=== PATIENT | female | born 1955 | race Caucasian/White ===

== ENCOUNTER → 2020-02-24 11:02 | Outpatient (CLI) | payer BC, SELFPAY ==
--- NOTE | ~2020-02-24 | MM_ITS ---
EXAMINATION: MM screening monik BI w vernon HISTORY: Screening mammogram TECHNIQUE: Craniocaudal and mediolateral oblique 3-D tomosynthesis images were obtained and synthetic 2-D images were generated. CAD analysis was submitted and interpreted. COMPARISON: Comparison to multiple prior studies sequentially, with oldest reviewed study dated 03/24. BREAST PARENCHYMAL COMPOSITION: The breasts are heterogenously dense, which may obscure small masses FINDINGS: There is a focal asymmetry laterally in the left breast on CC view, middle third. The right breast is stable without evidence for malignancy. IMPRESSION: 1. New focal left breast asymmetry. 2. Additional mammographic views and possible breast ultrasound are recommended. BI-RADS Category 0: Incomplete: Needs additional imaging evaluation. Reviewed, dictated and finalized at location A. IMPRESSION: 1. New focal left breast asymmetry. 2. Additional mammographic views and possible breast ultrasound are recommended . BI-RADS Category 0: Incomplete: Needs additional imaging evaluation.
== END ==
PROVIDERS: PCP Family Medicine; Visit Provider Obstetrics & Gynecology Gynecology
DX: Z12.31 Encounter for screening mammogram for malignant neoplasm of breast (principal); R92.8 Other abnormal and inconclusive findings on diagnostic imaging of breast
CPT/HCPCS: 77063; 77067

== ENCOUNTER 2020-03-01 11:34 | Outpatient (CLI) | payer BC, SELFPAY ==
--- NOTE | ~2020-03-01 | MM_ITS ---
EXAMINATION: MM diagnostic mammo unilat LT HISTORY: New focal mammographic asymmetry of left breast was reported on 02/24/2020 bilateral digital screening mammogram TECHNIQUE: Additional 3-D tomosynthesis images of the left breast were performed and synthetic 2-D im ages were generated. Rolled medial and rolled lateral craniocaudal views of left breast. CAD analysis was submitted and interpreted. COMPARISON: 02/24/2020 bilateral digital screening mammogram 05/04/2018 bilateral digital screening mammogram FINDINGS: No suspicious mass or architectural distortion, malignant calcification, skin thickening or retraction is detected. No significant new or developing density is evident. IMPRESSION: 1. No mammographic evidence of malignancy 2. Routine annual mammographic screening is recommended. BI-RADS Category 1: Negative Reviewed, dictated and finalized at location A.
== END 2020-03-01 11:35 | disposition home or self-care (01) ==
LOC: ANHIMG 11:36
PROVIDERS: PCP Family Medicine; Visit Provider Obstetrics & Gynecology Gynecology
DX: R92.8 Other abnormal and inconclusive findings on diagnostic imaging of breast (principal)
CPT/HCPCS: 77065

== ENCOUNTER 2021-09-10 08:48 | Outpatient (CLI) | payer BC, SELFPAY ==
--- NOTE | ~2021-09-10 | MM_ITS ---
EXAMINATION: MM screening monik BI w vernon HISTORY: Screening TECHNIQUE: Craniocaudal and mediolateral oblique 3-D tomosynthesis images were obtained and synthetic 2-D images were generated. CAD analysis was submitted and interpreted. COMPARISON: No prior mammogram is available for comparison at this institution. BREAST PARENCHYMAL COMPOSITION: The breasts are heterogeneously dense, which may obscure small masses . FINDINGS: There is no evidence of suspicious mass, calcification, or architectural distortion to sugg est malignancy in either breast. There has been no suspicious interval change. IMPRESSION: 1. No mammographic evidence of malignancy. 2. Recommend routine screening mammography in one year. BI-RADS Category 1: Negative Reviewed, dictated and finalized at location A.
--- NOTE | ~2021-09-10 | DEXA_ITS ---
Bone Density Report Name: Tavia Minaya Age: 66 Sex: Female Ethnicity: White Date of : 1955 Indication: postmenopausal; hysterectomy; Referring Provider: GENO, HUMA Study: Bone densitometry was performed. Exam Date: September 10, 2021 Accession number: [id number] Bone Density: Region BMD T-score Z-score Classification AP Spine (L1-L4) 1.285 2.2 4.0 Normal Femoral Neck (Left) 0.753 -0.9 0.7 Normal Total Hip (Left) 0.891 -0.4 0.9 Normal Total Hip Bilateral Avg 0.857 -0.7 0.6 Normal Femoral Neck (Right) 0.714 -1.2 0.4 Osteopenia Total Hip (Right) 0.823 -1.0 0.3 Normal World Health Organization criteria for BMD impression classify patients as: Normal (T-score at or above -1.0), Osteopenia (T-score between -1.0 and -2.5), or Osteoporosis (T-score at or below -2.5). 10-year Fracture Risk(1): Major Osteoporotic Fracture 8.6% Hip Fracture 0.8% Reported Risk Factors: [place] (), Neck BMD=0.714, BMI=27.5 (1) FRAX(R) Version 3.08. Fracture probability calculated for an untreated patient. Fracture probability may be lower if the patient has received treatment. Clinical Information Provided by Patient: Has used the following medications: Vitamin D, Calcium Has the following medical conditions: Hysterectomy Patient maximum height was 65 Menopause Age: 30 Drinks caffeinated beverages Onset of menses at age 13 Number of children 1 Impression: The patient has low bone mass, based on the Right Femoral Neck T-score. The patient has an estimated ten-year risk of hip fracture of 0.8% and an estimated ten-year risk of major fracture of 8.6%, based on the WHO FRAX algorithm. Discussion: BONE DENSITY IS LOW AT ONE OR MORE SKELETAL SITES. This patient's lowest T-score is low at one or more skeletal sites. It meets the World Health Organization's (WHO) criteria for ?low bone mass? (T-score between -1.0 and -2.5). The patient's 10-year risk of fracture as calculated by FRAX is less than the threshold where pharmacological therapy is recommended by the National Osteoporosis Foundation (NOF). However, all treatment decisions require clinical judgment and consideration of individual patient factors, including patient preferences, comorbidities, previous drug use, risk factors not captured in the FRAX model (e.g., frailty, falls, vitamin D deficiency, increased bone turnover, interval significant decline in bone density) and possible under or overestimation of fracture risk by FRAX. The patient should follow a healthful lifestyle (good nutrition with adequate calcium and vitamin D, and appropriate weight-bearing exercise). Follow-Up: Consider repeating this study in 2 to 3 years to reassess this patient's status, or sooner if there is some new clinical indication. Reported by: GENESIS on 09/10/2021 9:18:0
== END 2021-09-10 08:49 | disposition home or self-care (01) ==
LOC: ANHIMG 08:52
PROVIDERS: PCP Physician Assistant; Visit Provider Physician Assistant
DX: Z12.31 Encounter for screening mammogram for malignant neoplasm of breast (principal); Z78.0 Asymptomatic menopausal state; M85.851 Other specified disorders of bone density and structure, right thigh
CPT/HCPCS: 77063; 77067; 77080

== ENCOUNTER 2022-04-26 07:40 | Outpatient (CLI) | payer BC, SELFPAY ==
--- NOTE | ~2022-04-26 | US_ITS ---
US abdomen complete DATE: 04/26/2022 08:12 INDICATION: Ultrasound-guided reflux, bloating, diarrhea. TECHNIQUE: Real-time imaging of the abdomen COMPARISON: 12/12/2013 gallbladder ultrasound FINDINGS: There is hepatic steatosis. No hepatic space-occupying mass lesion is evident. Normal hepat opedal portal venous flow direction. No gallstones or gallbladder wall thickening or abnormal pericholecystic fluid collection. Negative s onographic Rajput's sign. The common bile duct measures 5 mm, normal. No pancreatic mass lesion is evident. No renal mass lesion or hydronephrosis. Normal splenic size. Abdominal aorta and inferior vena cava are not optimally evaluated due to overlying bowel gas. IMPRESSION: Hepatic steatosis Reviewed, dictated and finalized at Location A. Reviewed, dictated and finalized at location A. IMPRESSION: Hepatic steatosis
== END 2022-04-26 07:41 ==
PROVIDERS: PCP Physician Assistant; Visit Provider Physician Assistant
DX: K21.9 Gastro-esophageal reflux disease without esophagitis (principal); R14.0 Abdominal distension (gaseous); R19.7 Diarrhea, unspecified; K76.0 Fatty (change of) liver, not elsewhere classified
CPT/HCPCS: 76700

== ENCOUNTER 2022-07-10 00:44 | Day surgery (SDC) | payer BC, SELFPAY ==
[2022-06-27 13:18] VITALS: BMI 27.5
[2022-07-10 06:39] VITALS: BMI 29.1
[2022-07-10 06:41] VITALS: BP 141/66; PULSE 65; RESP 18; TEMP 36.4; O2SAT 98
[2022-07-10] MEDS: LACTATED RINGERS 1,000 ML 150 ML IV CONT (06:51)
[2022-07-10 06:52] LABS: Glucose Point of Care 164 mg/dl (65-105)
--- NOTE | 2022-07-10 07:12 | P.PNAN_ITS ---
Anes - Initial Pre Proc Eval Procedure: Operation Date: 07/10/22 07:30 Proposed Procedures p Esophagogastroduodenoscopy & Colonoscopy - Efrain Gibbons MD Date/Time: 07/10/22 07:12 Surgeon: Efrain Gibbons MD Pre Op Diagnosis: epigastric pain, GERD, change in bowel habits Patient Data Age: 67 Gender: F Height: 1.65 m Weight: 79.5 kg Last Vital Signs Temp 36.4 C L 07/10/22 06:41 Pulse 65 07/10/22 06:41 Resp 18 07/10/22 06:41 BP 141/66 H 07/10/22 06:41 Pulse Ox 98 07/10/22 06:41 O2 Del Method Room Air 07/10/22 06:41 Allergies Allergy/AdvReac Type Severity Reaction Status Date / Time No Known Allergies Allergy Mild Verified 07/10/22 06:37 Home Medications Medication Instructions Recorded Confirmed Type betamethasone, augmented 0.05 % 1 applic topical BID 05/05/22 07/10/22 History topical gel desloratadine 5 mg tablet 5 mg PO DAILY 05/05/22 07/10/22 History (Clarinex) fluoxetine 40 mg capsule (Prozac) 40 mg PO DAILY 05/05/22 07/10/22 History fluticasone propionate 50 1 spray intranasal DAILY 05/05/22 07/10/22 History mcg/actuation nasal spray,suspension (Flonase Allergy Relief) lisinopril 20 1 tablet PO DAILY 05/05/22 07/10/22 History mg-hydrochlorothiazide 25 mg tablet pantoprazole 40 mg tablet,delayed 40 mg PO QAM 05/05/22 07/10/22 History release semaglutide 0.25 mg or 0.5 mg (2 0.25 mg subcut WEEKLY 06/27/22 07/10/22 History mg/1.5 mL) subcutaneous pen injector (Ozempic) dicyclomine 10 mg capsule See Rx Instructions .Route 06/28/22 07/10/22 Rx .COMPLEX #90 caps Laboratory Tests 07/10/22 06:46 POC Capillary Glucose 164 mg/dl H mg/dl (65-105) Patient hx anesthesia problems: none Family hx anesthesia problems: none Results Review: All pre-operative results and documents have been reviewed as part of the pre- operative evaluation. [facility] Past Medical History Medical History (Updated 07/10/22 @ 07:13 by Marin Lantigua MD) Abdominal bloating Diabetes HTN (hypertension) Hyperlipidemia Social History Social History Smoking status: Never smoker Living arrangements: alone Spiritual care concerns: No Anes - Eval Final PreProcedure Day of Procedure 07/10/22 07:12 Patient weight: overweight Heart: regular rate and rhythm Lungs: clear to auscultation and normal air movement Airway: Mallampati scale class II Neurological: alert and oriented Last oral intake: >/= 8 hours ASA classification: III Emergent: no Anesthetic plan: proceed Anesthesia type and monitoring: general GIVS Results Review: All pre-operative results and documents have been reviewed as part of the pre- operative evaluation. Informed Consent: The patient's anesthetic plan and its attendant risks and benefits were discussed with the patient/family/POA. Questions were solicited and answers provided to the satisfaction of the patient/family/POA.
--- NOTE | 2022-07-10 07:27 | PM.HPGS ---
History of Present Illness History of Present Illness Consent: Risks, benefits, and alternatives have been discussed and questions answered. Patient agrees to proceed with procedure. Chief complaint: epigastric pain, GERD, change in bowel habits Narrative: Tavia Minaya is a 67 year old female with gerd on pantoprazole, intermittent abdominal pain, father with colon cancer and last colonoscopy 2017 Review of Systems Constitutional: Constitutional: Denies headache(s) and Denies weakness Eyes: Eyes: Denies blurry vision ENT: Reports Normal hearing present, Denies headache(s) and Denies neck pain Cardiovascular: Cardiovascular: Denies chest pain and Denies dyspnea Respiratory: Respiratory: Denies dyspnea Gastrointestinal: Gastrointestinal: Reports no additional gastrointestinal complaints Genitourinary: Genitourinary: Denies dysuria Musculoskeletal: Musculoskeletal: Denies neck pain Integumentary/Breasts: Skin/Breast: Denies dry skin Neurologic: Reports Normal hearing present, Denies headache(s) and Denies weakness Psychiatric: Psychiatric: Denies anxiety Endocrine: Endocrine: Denies change in body appearance Hematologic/Lymphatic: Hematologic/Lymphatic: Denies easy bleeding Allergic/Immunologic: Allergic/Immunologic: Denies urticaria PMFSH Past Medical History Medical History (Updated 07/10/22 @ 07:28 by Efrain Gibbons MD) Abdominal bloating Diabetes Family history of colon cancer in father GERD (gastroesophageal reflux disease) HTN (hypertension) Hyperlipidemia Social History Social History Smoking status: Never smoker Living arrangements: alone Spiritual care concerns: No Meds Home Medications and Allergies Home Medications Medication Instructions Recorded Confirmed Type betamethasone, augmented 0.05 % 1 applic topical BID 05/05/22 07/10/22 History topical gel desloratadine 5 mg tablet 5 mg PO DAILY 05/05/22 07/10/22 History (Clarinex) fluoxetine 40 mg capsule (Prozac) 40 mg PO DAILY 05/05/22 07/10/22 History fluticasone propionate 50 1 spray intranasal DAILY 05/05/22 07/10/22 History mcg/actuation nasal spray,suspension (Flonase Allergy Relief) lisinopril 20 1 tablet PO DAILY 05/05/22 07/10/22 History mg-hydrochlorothiazide 25 mg tablet pantoprazole 40 mg tablet,delayed 40 mg PO QAM 05/05/22 07/10/22 History release semaglutide 0.25 mg or 0.5 mg (2 0.25 mg subcut WEEKLY 06/27/22 07/10/22 History mg/1.5 mL) subcutaneous pen injector (Ozempic) dicyclomine 10 mg capsule See Rx Instructions .Route 06/28/22 07/10/22 Rx .COMPLEX #90 caps Allergies Allergy/AdvReac Type Severity Reaction Status Date / Time No Known Allergies Allergy Mild Verified 07/10/22 06:37 Vital Signs Vital Signs - 24 hr 07/10/22 06:41 Temperature 97.5 F L Pulse Rate 65 Respiratory Rate 18 Blood Pressure 141/66 H Pulse Oximetry 98 Oxygen Delivery Room Air Exam Const: General: comfortable and no acute distress HENMT: General nose exam: Normal nares present Eyes: General: appearance normal, both eyes and all related structures Neck: Neck: no JVD Resp: Auscultation: clear to auscultation bilaterally Cardio: Rate: regular rate Rhythm: regular rhythm GI: Inspection: non-distended GI Palp: Yes Soft to palpation Skin: General skin exam: normal color Neuro: General: gait normal Speech: normal speech Extrem: General: normal to inspection Psych: Mental Status: mental status grossly normal Assessment and Plan Assessment and plan (1) Abdominal bloating: Code(s): R14.0 - Abdominal distension (gaseous) Status: Acute Assessment and Plan: egd with bx (2) GERD (gastroesophageal reflux disease): Code(s): K21.9 - Gastro-esophageal reflux disease without esophagitis Status: Acute (3) Family history of colon cancer in father: Code(s): Z80.0 - Family history of malignant neoplasm of dige
[2022-07-10 07:58] VITALS: BP 122/67; PULSE 63; RESP 22; O2SAT 96
[2022-07-10 08:08] VITALS: BP 120/66; PULSE 59; RESP 19; O2SAT 95
[2022-07-10 08:18] VITALS: BP 121/76; PULSE 60; RESP 20; O2SAT 98
--- NOTE | 2022-07-10 08:35 | SUR.OPER ---
EGD START 729, END 733 COLONOSCOPY START 739, END 075
== END 2022-07-10 08:26 | disposition home or self-care (01) ==
PROVIDERS: PCP Physician Assistant; Visit Provider Internal Medicine Gastroenterology
PROC: 0DJ08ZZ Inspection of Upper Intestinal Tract, Via Natural or Artificial Opening Endoscopic (ICD-10-PCS; CPT 43235; principal; 2022-07-10 07:30)
DX: Z12.11 Encounter for screening for malignant neoplasm of colon (principal); K31.7 Polyp of stomach and duodenum; K29.50 Unspecified chronic gastritis without bleeding; Z80.0 Family history of malignant neoplasm of digestive organs; K57.30 Diverticulosis of large intestine without perforation or abscess without bleeding; R10.13 Epigastric pain; K21.9 Gastro-esophageal reflux disease without esophagitis; R14.0 Abdominal distension (gaseous); E11.9 Type 2 diabetes mellitus without complications; I10 Essential (primary) hypertension; E78.5 Hyperlipidemia, unspecified
CPT/HCPCS: 45378; 43239; 82948; 88305; J2704; J7120

== ENCOUNTER 2023-02-20 16:46 | Outpatient (CLI) | payer BC, SELFPAY ==
--- NOTE | ~2023-02-20 | MM_ITS ---
EXAMINATION: MM screening monik BI w vernon HISTORY: Screening TECHNIQUE: Craniocaudal and mediolateral oblique 3-D tomosynthesis images were obtained and synthetic 2-D images were generated. CAD analysis was submitted and interpreted. COMPARISON: Comparison to multiple prior studies sequentially, with oldest reviewed study dated 07/24. BREAST PARENCHYMAL COMPOSITION: The breasts are heterogeneously dense, which may obscure small masses FINDINGS: There is no evidence of suspicious mass, calcification, or architectural distortion to sugg est malignancy in either breast. There has been no suspicious interval change. IMPRESSION: 1. No mammographic evidence of malignancy. 2. Recommend routine screening mammography in one year. BI-RADS Category 1: Negative Reviewed, dictated and finalized at location D.
--- NOTE | ~2023-02-20 | DEXA_ITS ---
Bone Density Report Name: ROBIN CLAY Age: 67 Sex: Female Ethnicity: White Date of : 1955 Indication: postmenopausal; screening for osteoporosis; height loss; hysterectomy; Referring Provider: RACHEAL, KARRIE Study: Bone densitometry was performed. Exam Date: February 20, 2023 Accession number: [id number] Bone Density: Region BMD T-score Z-score Classification AP Spine(L1-L4) 1.271 2.0 4.0 Normal Femoral Neck (Left) 0.728 -1.1 0.6 Osteopenia Total Hip (Left) 0.848 -0.8 0.6 Normal Femoral Neck (Right) 0.728 -1.1 0.6 Osteopenia Total Hip (Right) 0.814 -1.1 0.3 Osteopenia Total Hip Mean 0.831 -1.0 0.5 Normal World Health Organization criteria for BMD impression classify patients as: Normal (T-score at or above -1.0), Osteopenia (T-score between -1.0 and -2.5), or Osteoporosis (T-score at or below -2.5). 10-year Fracture Risk(1): Major Osteoporotic Fracture 8.5% Hip Fracture 0.8% Reported Risk Factors: [place] (), Neck BMD=0.728, BMI=29.1 (1) FRAX(R) Version 3.08. Fracture probability calculated for an untreated patient. Fracture probability may be lower if the patient has received treatment. Previous Exams: Region Exam Age BMD T-score BMD Change BMD Change Date g/cm2 vs Baseline vs Previous AP Spine (L1-L4) 02/20/2023 67 1.271 2.0 -0.013 (-1.0%) -0.013 (-1.0%) 09/10/2021 66 1.285 2.2 Total Hip(Left) 02/20/2023 67 0.848 -0.8 -0.042 (-4.8%) -0.042 (-4.8%) 09/10/2021 66 0.891 -0.4 Total Hip(Right) 02/20/2023 67 0.814 -1.1 -0.009 (-1.1%) -0.009 (-1.1%) 09/10/2021 66 0.823 -1.0 *Denotes significance at 95% confidence level, LSC for AP Spine = 0.022 g/cm2, LSC for Total Hip = 0.027 g/cm2 # Denotes dissimilar scan types or analysis methods Clinical Information Provided by Patient: Has used the following medications: Vitamin D, Calcium Has the following medical conditions: Hysterectomy Patient maximum height was 66 Menopause Age: 30 Drinks caffeinated beverages Onset of menses at age 12 Number of children 1 Impression: The patient has low bone mass, based on the Right Total Hip T-score. The patient has an estimated ten-year risk of hip fracture of 0.8% and an estimated ten-year risk of major fracture of 8.5%, based on the WHO FRAX algorithm. No significant bone loss was observed. Discussion: BONE DENSITY IS LOW AT ONE OR MORE SKELETAL SITES. This patient's lowest T-sc
== END 2023-02-20 16:47 | disposition home or self-care (01) ==
PROVIDERS: PCP Nurse Practitioner Family; Visit Provider Nurse Practitioner
DX: Z12.31 Encounter for screening mammogram for malignant neoplasm of breast (principal); Z78.0 Asymptomatic menopausal state; M85.852 Other specified disorders of bone density and structure, left thigh; M85.851 Other specified disorders of bone density and structure, right thigh
CPT/HCPCS: 77063; 77067; 77080

== ENCOUNTER 2023-04-25 11:50 | Emergency (ER) | payer BC, SELFPAY | END 2023-04-25 12:05 | disposition left against medical advice (07) | PROVIDERS: PCP Nurse Practitioner Family | DX: Z53.21 Procedure and treatment not carried out due to patient leaving prior to being seen by health care provider (principal) | CPT/HCPCS: 99199 ==

== ENCOUNTER 2024-07-11 08:05 | Outpatient (CLI) | payer BC, SELFPAY ==
--- NOTE | ~2024-07-11 | MM_ITS ---
EXAMINATION: MM screening monik BI w vernon HISTORY: Screening TECHNIQUE: Craniocaudal and mediolateral oblique 3-D tomosynthesis images were obtained and synthetic 2-D images were generated. CAD analysis was submitted and interpreted. COMPARISON: Comparison to multiple prior studies sequentially, with oldest reviewed study dated 07/24. BREAST PARENCHYMAL COMPOSITION: Dense: The breasts are heterogeneously dense, which may obscure small masses FINDINGS: There is no evidence of suspicious mass, calcification, or architectural distortion to sugg est malignancy in either breast. There has been no suspicious interval change. IMPRESSION: 1. No mammographic evidence of malignancy. 2. Recommend routine screening mammography in one year. BI-RADS Category 1: Negative Reviewed, dictated and finalized at location B.
== END 2024-07-11 08:06 | disposition home or self-care (01) ==
PROVIDERS: PCP Nurse Practitioner Family; Visit Provider Nurse Practitioner Family
DX: Z12.31 Encounter for screening mammogram for malignant neoplasm of breast (principal)
CPT/HCPCS: 77063; 77067

== ENCOUNTER 2024-07-24 10:03 | Outpatient (CLI) | payer BC, SELFPAY ==
--- NOTE | ~2024-07-24 | CT_ITS ---
EXAMINATION: CT abdomen pelvis w con DATE: 07/24/2024 10:30 INDICATION: Abdominal pain TECHNIQUE: Computed tomography (CT) of the abdomen and pelvis was performed with 100 mL Omnipaque-350 intravenous contrast. Automated exposure control and iterative reconstruction technique were employe d. The dose-length product was 803.87 mGy-cm. COMPARISON: CT dated 01/24/2011 FINDINGS: Minimal discoid atelectasis at the lingula. Heart size is normal. No pericardial or pleural effusion. Subtly heterogeneous diffuse hepatic steatosis with focal sparing along the gallbladder fossa. Gallb ladder, spleen, pancreas, bilateral adrenal glands and kidneys are normal. There is mild colonic dive rticulosis with a sigmoid predominance. There is no adjacent inflammatory change to suggest divertic ulitis. Small bowel and appendix are normal. Bladder is normal. The uterus is not identified and has likely been surgically resected. Stable appearance of chronic nonspecific haziness and stranding in t he mesenteric fat in the central abdomen. Minimal free fluid in the deep pelvis. No abscess or free i ntraperitoneal gas. No pathologically enlarged abdominal or pelvic lymphadenopathy. Moderate lumbar a nd mild lower thoracic spondylosis. Unchanged sclerotic likely bone island at T9. IMPRESSION: 1. No acute intra-abdominal/pelvic process. 2. Diffuse hepatic steatosis. 3. Mild diverticulosis. Reviewed, dictated and finalized at location B.
[2024-07-24 10:22] LABS: Estimated Glomerular Filt Rate > 60
== END 2024-07-24 10:04 | disposition home or self-care (01) ==
PROVIDERS: PCP Nurse Practitioner Family; Visit Provider Nurse Practitioner Family
DX: K76.0 Fatty (change of) liver, not elsewhere classified (principal); K57.30 Diverticulosis of large intestine without perforation or abscess without bleeding
CPT/HCPCS: 74177; Q9967